=== PATIENT | female | born 1990 | race Hispanic/Latino ===

== ENCOUNTER 2017-06-03 09:30 | Outpatient (CLI) | payer BC ==
--- NOTE | 2017-06-03 12:21 | Event Note ---
Date: 06/03/17 Pt with no obvious s/sx of SROM by GLORIA Mckeon. Pt sono shows normal AMANDA and BPP. Keep scheduled apt in the office.
--- NOTE | 2017-06-03 14:51 | Ultrasound Report ---
ULTRASOUND BIOPHYSICAL PROFILE: History: Spontaneous rupture of membranes Technique: Transabdominal ultrasound with Doppler interrogation. 2 - breathing movements 2 - movements 2 - posture and tone 2 - Qualitative amniotic fluid volume 8 - TOTAL SCORE OF POSSIBLE 8 Heart Rate (bpm) 136
--- NOTE | 2017-06-03 14:52 | Ultrasound Report ---
ULTRASOUND OB LIMITED History: Decreased movement Technique: Transabdominal ultrasound with Doppler interrogation. Gestation: Single Position: Cephalic Amniotic Fluid: Normal AMANDA = 8.0 cm Heart Rate: 136 BPM
== END 2017-06-03 12:26 | disposition home or self-care (01) ==
LOC: TRG 09:30 → LD 09:31 → TRG 12:26
PROVIDERS: ATTEND Obstetrics & Gynecology
DX: O36.8130 Decreased fetal movements, third trimester, not applicable or unspecified (principal); O47.1 False labor at or after 37 completed weeks of gestation; Z3A.39 39 weeks gestation of pregnancy
CPT/HCPCS: 59025; 76815; 76819

== ENCOUNTER 2017-06-05 03:21 | Inpatient (IN) | payer BC, MEDICAID ==
[2017-06-05] MEDS ORDERED: STADOL IV PRN (04:34)
[2017-06-05] MEDS ORDERED: XYLOCAINE 2% INFILTRATI ONE (04:34)
[2017-06-05] MEDS ORDERED: POLYCILLIN/NS 2 GM/100 ML 2 GM/100 ML BAG IV ONE (04:34)
[2017-06-05] MEDS ORDERED: CERVIDIL VG ONE (04:34)
[2017-06-05] MEDS ORDERED: BRETHINE SUB-Q PRN (04:34)
[2017-06-05] MEDS ORDERED: MINERAL OIL PO PRN (04:34)
[2017-06-05] MEDS ORDERED: ZOFRAN IV PRN (04:34)
[2017-06-05] MEDS ORDERED: BRETHINE IVP PRN (04:34)
[2017-06-05] MEDS ORDERED: SUBLIMAZE IV PRN (04:34)
[2017-06-05] MEDS ORDERED: ePHEDrine SULFATE IV PRN ×2 (04:34→11:00)
[2017-06-05] MEDS ORDERED: PITOCin/NS 20 UNIT/1000ML DRIP 20 UNITS/1,000 ML BAG IV SCH ×2 (05:00→20:47)
--- NOTE | 2017-06-05 05:03 | Ultrasound Report ---
FINAL REPORT PROCEDURE: US OB BPP WO NON-STRESS TECHNIQUE: Sonographic evaluation for breathing, movement, tone, and amniotic fluid volume was performed. CPT 42823 HISTORY: nrfht COMPARISON: No prior studies are available for comparison. FINDINGS: Amniotic fluid volume: Normal-score 2. At least one vertical pocket > 2 cm or more in vertical axis. breathing: Normal-score 2. movement: Normal-score 2. tone: Normal. Score: 8 of 8. IMPRESSION: Normal biophysical profile.
--- NOTE | 2017-06-05 05:04 | Ultrasound Report ---
FINAL REPORT PROCEDURE: US OB LIMITED TECHNIQUE: Real-time limited sonographic examination was performed for evaluation of wellbeing, amniotic fluid volume for each fetus with image documentation (1 or more fetuses). CPT 35385 HISTORY: NRFHT COMPARISON: No prior studies are available for comparison. FINDINGS: There is a single fetus in a vertex presentation. heart rate 126 beats per minute. Four-quadrant amniotic fluid volume measures 5.7 centimeters. IMPRESSION: There is a single fetus in vertex presentation. Amniotic fluid volume 5.7 centimeter.
[2017-06-05 05:56] LABS: Hematocrit 40.4 % (30.3-42.9); Mean Corpuscular HGB Conc 35 % (30-34); Mean Corpuscular Hemoglobin 32 pg (28-32); Mean Corpuscular Volume 91 fl (79-97); Platelet Count 121 K/mm3 (140-440); Red Blood Count 4.42 M/mm3 (3.65-5.03); Red Cell Distribution Width 13.5 % (13.2-15.2)
[2017-06-05] MEDS: LACTATED RINGERS 1,000 ML IV SCH ×2 (06:43→10:40)
--- NOTE | 2017-06-05 07:19 | History and Physical Report ---
History of Present Illness Date of examination: 06/05/17 Date of admission: 06/05/17 05:02 Chief complaint: Early labor, low AMANDA History of present illness: EDC Calculations LMP: 06/04/2017 Past History : 2 Term Births: 0 Premature Births: 0 Living Children: 0 Para: 0 Mult. Births: 0 Prev : 0 Prev. attempt? 0 Aborta: 1 Elect. Ab: 1 Spont. Ab: 0 Ectopics: 0 # 1 Delivery date: 2014 Delivery type: EAB Comments: please do not mention around family Past Medical History: Reviewed history from 06/23/2014 and no changes required: Negative Past Medical History Past Surgical History: Reviewed history from 07/07/2014 and no changes required: negative Past Medical History Anesthesia Complications: negative Anemia: negative Autoimmune Disorder: negative Bleeding Disorder: negative Blood Transfusions: negative Breast Disease: negative Diabetes: negative Heart Disease: negative Hypertension: negative Hepatitis/Liver Disease: negative Kidney Disease/UTI: negative Neurologic/Epilepsy/Migraines: negative Phlebitis/Varicosities: negative Psychiatric: negative Pulmonary Disease/Asthma: negative Thyroid Disease: negative Hospitalizations: negative Surgery (Non-operations and maintenance specialist): negative Abnormal PAP: negative KELLY Exposure: negative Infertility: negative Uterine Anomaly: negative Uterine Surgery (not C/S): negative Other Gynecologic Problems: negative Social Hx: Patient is engaged No smoking/drinking/drugs 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 Infection History Hx of STD: none HIV Risk Eval: no Hepatitis B Risk Eval: low risk Personal hx. of genital herpes: no Partner hx. of genital herpes: no Rash, Viral, or Febrile illness since last LMP? no Varicella/Chicken Pox Status: Immunized Genetic History Congenital Heart Defect: Mom: no Dad: no Pamela Disease: Mom: no Dad: no Thalassemia Mom: no Dad: no Neural Tube Defect Mom: no Dad: no Down's Syndrome Mom: no Dad: no Tello-Sachs Mom: no Dad: no Sickle Cell Disease/Trait Mom: no Dad: no Hemophilia Mom: no Dad: no Muscular Dystrophy Mom: no Dad: no Cystic Fibrosis Mom: no Dad: no [place] Chorea Mom: no Dad: no Mental Retardation Mom: no Dad: no Fragile X Mom: no Dad: no Other Genetic/Chromosomal Disorder Mom: no Dad: no Child w/other defect Mom: no Dad: no Enviromental Exposures Xray Exposure: no Medication, drug, or alcohol use since LMP: no Chemical/Other Exposure: no Exposure to Cat Liter: no Hx of Parvovirus (Fifth Disease): no Occupational Exposure to Children: other Active Medications (reviewed today): TABS ( VIT-FE FUMARATE-FA TABS) UNISOM () Current Allergies (reviewed today): No known allergies Past History Past Medical History: no pertinent history Past Surgical History: no surgical history - Obstetrical History Expected Date of Delivery: 06/04/17 Actual Gestation: 40 Week(s) 1 Day(s) : 2 Para: 0 Hx # Term Pregnancies: 0 Number of Pregnancies: 0 Spontaneous Abortions: 0 Induced : 1 Number of Living Children: 0 Medications and Allergies Allergies Allergy/AdvReac Type Severity Reaction Status Date / Time Sulfa (Sulfonamide Allergy Hives Verified 12/13/16 09:41 Antibiotics) Home Medications Medication Instructions Recorded Confirmed Last Taken Type Vit,Calc76/Iron/Folic 1 each PO DAILY 06/03/17 06/05/17 06/04/17 10:30 History [Pnv 29-1 Tablet] Active Meds: Active Medications Butorphanol Tartrate (Stadol) 2 mg IV Q2H PRN PRN Reason: Pain , Severe (7-10) Ephedrine Sulfate (Ephedrine Sulfate) 10 mg IV Q2M PRN PRN Reason: Hypotension Fentanyl (Sublimaze) 100 mcg IV Q2H PRN PRN Reason: Labor Pain Lactated Ringer's (Lactated Ringers) 1,000 mls @ 125 mls/hr IV DIRECT FLOR Last Admin: 06/05/17 06:43 Dose: 125 mls/hr Oxytocin/Sodium Chloride (Pitocin/Ns 20 Unit/1000ml Drip) 20 units in 1,000 mls @ 125 mls/hr IV DIRECT FLOR Ampicillin Sodium (Ampicillin/Ns 1 Gm/50 Ml) 1 gm in 50 mls @ 100 mls/hr IV Q4HR FLOR; Protocol Mineral Oil (Mineral Oil) 30 ml PO QHS PRN PRN Reason: Constipation Ondansetron HCl (Zofran) 4 mg IV Q8H PRN PRN Reason: Nausea And Vomiting Terbutaline Sulfate (Brethine) 0.25 mg SUB-Q ONCE PRN PRN Reason: Hyperstimulation/Hypertonicity Terbutaline Sulfate (Brethine) 0.25 mg IVP ONCE PRN PRN Reason: Hyperstimulation/Hypertonicity Review of Systems All systems: negative - Vital Signs Vital signs: Vital Signs Temp Resp 98.4 F 18 06/05/17 03:49 06/05/17 03:49 Temp Pulse Resp BP Pulse Ox 98.4 F 18 06/05/17 03:49 06/05/17 03:49 - Physical Exam Breasts: Positive: normal Cardiovascular: Regular rate Lungs: Positive: Clear to auscultation, Normal air movement Abdomen: Positive: normal appearance, soft, normal bowel sounds Genitourinary (Female): Positive: normal external genitalia, normal perenium Vulva: both: normal Vagina: Positive: normal moisture Uterus: Positive: normal size, normal contour Anus/Rectum: Positive: normal perianal skin Extremities: Positive: normal Deep Tendon Reflex Grade: Normal +2 - Obstetrical FHR: category 1 Uterine Contraction Monitor Mode: External Cervical Dilatation: 2 Cervical Effacement Percentage: 80 station: -1 Uterine Contraction Frequency (min): 4-8 Uterine Contraction Pattern: Regular Uterine Tone Measurement Phase: Contraction Uterine Contraction Intensity: Mild Results Result Diagrams: 06/05/17 05:44 Abnormal lab results 06/05/17 Range/Units 05:44 MCHC 35 H (30-34) % Plt Count 121 L (140-440) K/mm3 All other labs normal. Assessment and Plan 26 y/o @ 40+1 weeks who arrived last night with c/o ctx and spotting. Her tracing was noted to have decreased variability so BPP/AMANDA done with AMANDA 5cm. FHT now cat 1, will start IOL for oligo. GBS +. will start pit. Admission orders in EMR. - Patient Problems (1) 40 weeks gestation of Current Visit: Yes Status: Acute (2) GBS (group B Streptococcus carrier), +RV culture, currently Current Visit: Yes Status: Acute (3) Oligohydramnios Current Visit: Yes Status: Acute Qualifiers: Fetus number: single or unspecified fetus Trimester: third trimester Qualified Code(s): O41.03X0 - Oligohydramnios, third trimester, not applicable or unspecified
[2017-06-05] MEDS ORDERED: PITOCin/NS 30 UNIT/500ML 30 UNITS/500 ML BAG IV SCH (08:00)
[2017-06-05] MEDS ORDERED: AMPICILLIN/NS 1 GM/50 ML 1 GM/50 ML BAG IV SCH (09:00)
[2017-06-05] MEDS ORDERED: fentaNYL-BUPIV 2 MCG/ML-0.125% 200 MCG/100 ML BAG EPIDURAL SCH (11:00)
[2017-06-05] MEDS ORDERED: NARCAN 2 MG/2 ML IV PRN (11:00)
--- NOTE | 2017-06-05 12:51 | Progress Note ---
Assessment and Plan patient comfortable s/p epidural. SVE with good change since this AM. AROM - clear/blood tinged fluid in small amount. Second dose of amp infusing. Continue current management, anticipate . - Patient Problems (1) 40 weeks gestation of Current Visit: Yes Status: Acute (2) GBS (group B Streptococcus carrier), +RV culture, currently Current Visit: Yes Status: Acute (3) Oligohydramnios Current Visit: Yes Status: Acute Qualifiers: Fetus number: single or unspecified fetus Trimester: third trimester Qualified Code(s): O41.03X0 - Oligohydramnios, third trimester, not applicable or unspecified Subjective - Subjective Date of service: 06/05/17 Principal diagnosis: IUp @ 40+1, Labor, oligo Interval history: EDC Calculations LMP: 06/04/2017 Past History : 2 Term Births: 0 Premature Births: 0 Living Children: 0 Para: 0 Mult. Births: 0 Prev : 0 Prev. attempt? 0 Aborta: 1 Elect. Ab: 1 Spont. Ab: 0 Ectopics: 0 # 1 Delivery date: 2014 Delivery type: EAB Comments: please do not mention around family Past Medical History: Reviewed history from 06/23/2014 and no changes required: Negative Past Medical History Past Surgical History: Reviewed history from 07/07/2014 and no changes required: negative Past Medical History Anesthesia Complications: negative Anemia: negative Autoimmune Disorder: negative Bleeding Disorder: negative Blood Transfusions: negative Breast Disease: negative Diabetes: negative Heart Disease: negative Hypertension: negative Hepatitis/Liver Disease: negative Kidney Disease/UTI: negative Neurologic/Epilepsy/Migraines: negative Phlebitis/Varicosities: negative Psychiatric: negative Pulmonary Disease/Asthma: negative Thyroid Disease: negative Hospitalizations: negative Surgery (Non-ball point splitter): negative Abnormal PAP: negative KELLY Exposure: negative Infertility: negative Uterine Anomaly: negative Uterine Surgery (not C/S): negative Other Gynecologic Problems: negative Social Hx: Patient is engaged No smoking/drinking/drugs 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 Infection History Hx of STD: none HIV Risk Eval: no Hepatitis B Risk Eval: low risk Personal hx. of genital herpes: no Partner hx. of genital herpes: no Rash, Viral, or Febrile illness since last LMP? no Varicella/Chicken Pox Status: Immunized Genetic History Congenital Heart Defect: Mom: no Dad: no Pamela Disease: Mom: no Dad: no Thalassemia Mom: no Dad: no Neural Tube Defect Mom: no Dad: no Down's Syndrome Mom: no Dad: no Tello-Sachs Mom: no Dad: no Sickle Cell Disease/Trait Mom: no Dad: no Hemophilia Mom: no Dad: no Muscular Dystrophy Mom: no Dad: no Cystic Fibrosis Mom: no Dad: no [place] Chorea Mom: no Dad: no Mental Retardation Mom: no Dad: no Fragile X Mom: no Dad: no Other Genetic/Chromosomal Disorder Mom: no Dad: no Child w/other defect Mom: no Dad: no Enviromental Exposures Xray Exposure: no Medication, drug, or alcohol use since LMP: no Chemical/Other Exposure: no Exposure to Cat Liter: no Hx of Parvovirus (Fifth Disease): no Occupational Exposure to Children: other Active Medications (reviewed today): TABS ( VIT-FE FUMARATE-FA TABS) UNISOM () Current Allergies (reviewed today): No known allergies Patient reports: no new complaints (comfortable with epidural) Objective - Vital Signs Vital Signs: Vital Signs - 12hr 06/05/17 06/05/17 03:49 07:25 Temperature 98.4 F 98.2 F Pulse Rate 92 H Respiratory 18 18 Rate Blood Pressure 128/76 [Right] - Exam Breasts: normal Cardiovascular: Regular rate Lungs: Clear to auscultation, Normal air movement Abdomen: Present: normal appearance, soft Vulva: both: normal Uterus: Present: normal FHR: auscultation normal, category 1 Uterine Contraction Monitor Mode: Internal Cervical Dilatation: 3.5 (cervix midline) Cervical Effacement Percentage: 80 station: -1 Uterine Contraction Frequency (min): 2 Uterine Contraction Duration: 60 Uterine Contraction Pattern: Regular Uterine Tone Measurement Phase: Contraction Uterine Contraction Intensity: Strong/Firm Extremities: normal Deep Tendon Reflex Grade: Normal +2 - Labs Labs: Abnormal Labs 06/05/17 05:44 MCHC 35 H Plt Count 121 L Laboratory Results - last 24 hr 06/05/17 06/05/17 06/05/17 05:44 05:44 05:44 WBC 10.5 RBC 4.42 Hgb 14.0 Hct 40.4 MCV 91 MCH 32 MCHC 35 H RDW 13.5 Plt Count 121 L RPR Nonreactive Blood Type O POSITIVE Antibody Screen Negative
--- NOTE | 2017-06-05 16:32 | Procedure Note ---
OB Delivery Note - Delivery Date of Delivery: 06/05/17 ( Female) C 13 Catapult Operator: JENNIFER HAYS Estimated blood loss: 300cc - Vaginal Delivery presentation: vertex Delivery position: OA Intrapartum events: other(please specify) (oligohydramnios) Delivery induction: oxytocin Delivery augmentation: rupture of membranes Delivery monitor: internal FHT, internal uterine Route of delivery: Delivery placenta: spontaneous Delivery cord: 3 umbilical vessels Episiotomy: none Delivery laceration: 1st degree Delivery repair: vicryl Anesthesia: epidural Delivery comments: Female del BALAJI over intact perineum. No shoulder dystocia. Infant placed skin to skin on mother's abd. 3 vessel cord clamped and cut. cord blood collected. Placenta del intact and complete. Pit to IVF. 1st degree vaginal laceration repaired with vicryl 3-[address] EBL 300, apgars 8/9, 's weight 8#6oz. Mother and infant in stable condition. - A at 1 minute: 8 at 5 minutes: 9 Infant Gender: Female (8#6oz)
[2017-06-05] MEDS ORDERED: PHENERGAN PO PRN (20:47)
[2017-06-05] MEDS ORDERED: BENADRYL PO PRN (20:47)
[2017-06-05] MEDS ORDERED: LANSINOH TP PRN (20:47)
[2017-06-05] MEDS ORDERED: SODIUM CHLORIDE FLUSH SYRINGE 10 ML IV NR (20:47)
[2017-06-05] MEDS ORDERED: TYLENOL PO PRN (20:47)
[2017-06-05] MEDS ORDERED: DERMOPLAST TP PRN (20:47)
[2017-06-05] MEDS: MOTRIN PO SCH (21:10)
[2017-06-05] MEDS: FEOSOL PO SCH (21:10)
[2017-06-05] MEDS: COLACE PO SCH (21:11)
[2017-06-05] MEDS: TUCKS PAD TP PRN (21:11)
[2017-06-05] MEDS ORDERED: DULCOLAX PR PRN (22:00)
[2017-06-05] MEDS ORDERED: MILK OF MAGNESIA PO PRN (22:00)
[2017-06-06] MEDS: MOTRIN PO SCH ×3 (02:52→18:00)
[2017-06-06 05:41] LABS: Hematocrit 36.3 % (30.3-42.9); Hemoglobin 12.2 gm/dl (10.1-14.3)
[2017-06-06] MEDS ORDERED: BOOSTRIX IM ONE (06:00)
--- NOTE | 2017-06-06 06:54 | Discharge Summary ---
Providers - Providers Date of Admission: 06/05/17 05:02 Date of discharge: 06/06/17 (pt requests d/c today) Attending physician: ОЛЕГ HACKETT 06/05/17 20:47 Consult to Bone Plant Supervisor [CONS] Routine Reason For Exam: assistance with , SNS Primary care physician: ОЛЕГ HACKETT Hospitalization Reason for admission: active labor Delivery: Episiotomy: none Laceration: 1st degree Incision: normal, dry, intact Other procedures: none complications: none Discharge diagnosis: IUP at term delivered [place] baby: female Hospital course: uncomplicated vaginal delivery Pt w/o complaint VSS FF below umb Lochia small Perineum slight swelling, intact. H&H Asymptomatic anemia. Doing well s/p vag delivery. P: d/c today with instructions RTO 4 weeks for PP care. Condition at discharge: Good Disposition: DC-01 TO HOME OR SELFCARE - Discharge Diagnoses (1) (normal spontaneous vaginal delivery) Status: Acute Comment: RTO 4 weeks PP care Plan - Provider Discharge Summary Activity: routine, no sex for 6 weeks, no heavy lifting 4 weeks, no strenuous exercise Diet: routine Instructions: routine Additional instructions: [] Smoking cessation referral if applicable(refer to patient education folder for contact #) [] Refer to [facility] Booklet Call your doctor immediately for: * Fever > 100.5 * Heavy vaginal bleeding ( >1 pad per hour) * Severe persistent headache * Shortness of breath * Reddened, hot, painful area to leg or breast * Drainage or odor from incision. * Keep incision clean and dry at all times and follow doctor's instructions regarding bathing/showering - Follow up plan Follow up: ОЛЕГ HACKETT MD [Primary Care Provider] - 07/05/17 (Congratulations! Please call [phone] to schedule your visit 4 weeks. Take medications as directed. Call with concerns.)
[2017-06-06] MEDS: FEOSOL PO SCH ×2 (10:27→21:05)
[2017-06-06] MEDS: COLACE PO SCH ×2 (10:27→21:05)
[2017-06-06] MEDS: PRENATAL VITAMIN PO SCH (10:27)
[2017-06-06] MEDS: TUCKS PAD TP PRN (20:30)
[2017-06-07] MEDS: MOTRIN PO SCH ×4 (04:21→18:30)
[2017-06-07] MEDS: COLACE PO SCH (11:19)
[2017-06-07] MEDS: PRENATAL VITAMIN PO SCH (11:19)
[2017-06-07] MEDS: FEOSOL PO SCH (11:19)
[2017-06-07 18:32] VITALS: BP 111/63
== END 2017-06-07 18:45 | disposition home or self-care (01) | DRG 775 ==
LOC: TRG 03:21 → LD 05:02 → OB 20:36
PROVIDERS: ADMIT Obstetrics & Gynecology; ATTEND Obstetrics & Gynecology
PROC: 10E0XZZ Delivery of Products of Conception, External Approach (ICD-10-PCS; principal; 2017-06-05)
PROC: 3E033VJ Introduction of Other Hormone into Peripheral Vein, Percutaneous Approach (ICD-10-PCS; 2017-06-05)
PROC: 0HQ9XZZ Repair Perineum Skin, External Approach (ICD-10-PCS; 2017-06-05)
PROC: 00HU33Z Insertion of Infusion Device into Spinal Canal, Percutaneous Approach (ICD-10-PCS; 2017-06-05)
PROC: 3E0R3BZ Introduction of Anesthetic Agent into Spinal Canal, Percutaneous Approach (ICD-10-PCS; 2017-06-05)
PROC: 3E0234Z Introduction of Serum, Toxoid and Vaccine into Muscle, Percutaneous Approach (ICD-10-PCS; 2017-06-06)
DX: O41.03X0 Oligohydramnios, third trimester, not applicable or unspecified (principal); Z3A.40 40 weeks gestation of pregnancy; Z37.0 Single live birth; Z23 Encounter for immunization; Z88.2 Allergy status to sulfonamides; O99.824 Streptococcus B carrier state complicating childbirth; O70.0 First degree perineal laceration during delivery; O90.81 Anemia of the puerperium; D64.9 Anemia, unspecified
CPT/HCPCS: 36415; 76815; 76819; 85014; 85018; 85027; 86592; 86850; 86900; 86901; 90471; 90715; 99211; G0463; J0290; J2590; J7120